=== PATIENT | male | born 1995 | race Two or more races ===

== ENCOUNTER 2018-04-09 19:09 | Emergency (ER) | payer SELFPAY ==
--- NOTE | 2018-04-09 19:38 | EDM.PDOCBH ---
ED HPI GENERAL MEDICAL PROBLEM - General Chief Complaint: Behavioral/Psych Stated Complaint: MENTAL EVAL Time Seen by Provider: 04/09/18 19:18 Source of Information: Reports: Patient History Limitations: Reports: No Limitations - History of Present Illness INITIAL COMMENTS - FREE TEXT/NARRATIVE: HISTORY AND PHYSICAL: History of present illness: Patient is a 22-year-old male who presents to the emergency room today with complaints of auditory and visual hallucinations. Patient has a long-standing history of schizophrenia and had previously taken daily oral and injectable medication while living in [place]. He states over the past month he has not taken these medications as he was continuing to have the visual and auditory hallucinations while on the medication. He states, "My brother wants me to be here to get psychiatric help". Patient reports he does have a past medical history of suicidal ideation and suicidal attempt which she has been hospitalized for. He currently denies any thoughts of self-harm or harming others. No recent suicidal ideations or attempts. Denies any drug or alcohol abuse. Review of systems: As per history of present illness and below otherwise all systems reviewed and negative. Past medical history: As per history of present illness and as reviewed below otherwise noncontributory. Surgical history: As per history of present illness and as reviewed below otherwise noncontributory. Social history: No reported history of drug or alcohol abuse. Family history: As per history of present illness and as reviewed below otherwise noncontributory. Physical exam: General: Well-developed and well-nourished 22-year-old male. Alert and oriented. Nontoxic appearing and in no acute distress. HEENT: Atraumatic, normocephalic, pupils equal and reactive bilaterally, negative for conjunctival pallor or scleral icterus, mucous membranes moist, throat clear, neck supple, nontender, trachea midline. No drooling or trismus noted. No meningeal signs Lungs: Clear to auscultation, breath sounds equal bilaterally, chest nontender. Heart: S1S2, regular rate and rhythm without overt murmur Abdomen: Soft, nondistended, nontender. Negative for masses or hepatosplenomegaly. Negative for costovertebral tenderness. Pelvis: Stable nontender. Genitourinary: Deferred. Rectal: Deferred. Skin: Intact, warm, dry. No lesions or rashes noted. Extremities: Atraumatic, negative for cords or calf pain. Neurovascular unremarkable. Neuro: Awake, alert, oriented. Cranial nerves II through XII unremarkable. Cerebellum unremarkable. Motor and sensory unremarkable throughout. Exam nonfocal. Notes: Initially the patient stated he would not want to be transferred to a mental health facility as he states that this is a chronic problem and he does not feel any improvement with medications. The brother is at the bedside and does confirm that the patient is NOT suicidal and not expressed any thoughts of harming himself or others; but would like to see him get connected with a psychiatrist for medication management. 2000: I did call [facility] in [place], they do not have any beds available. Did share this information with the patient and brother at bedside. However next option would be to go to [place]. Both patient and brother state that they will follow-up at [facility] for further evaluation and management. He declines transfer or desire to go to [place]. Patient is alert and oriented. Lab work is unremarkable. Vital signs are stable. He has no thoughts of self-harm or harming of others. Therefore will discharge him to home. The brother does live with the patient and states that they will return if anything changes. Diagnostics: CBC, CMP, TSH, UA, Drug Screen, Acetaminophen, Salicylate Therapeutics: None Prescription: None Impression: Hallucinations History of Schizophrenia Plan: 1. Please follow up with [facility] tomorrow to establish care and have your medications adjusted. 2. Return to the ED as needed as discussed Definitive disposition and diagnosis as appropriate pending reevaluation and review of above. Duration: Chronic - Related Data Allergies Allergy/AdvReac Type Severity Reaction Status Date / Time No Known Allergies Allergy Verified 04/09/18 19:20 Home Meds: Home Meds Haloperidol [Haldol] 5 mg PO BID 04/09/18 [History] diphenhydrAMINE HCl [Banophen] 25 mg PO BID 04/09/18 [History] Past Medical History Psychiatric History: Reports: Anxiety Endocrine/Metabolic History: Reports: Obesity/BMI 30+ Social & Family History - Family History Family Medical History: Noncontributory - Tobacco Use Smoking Status *Q: Current Every Day Smoker Years of Tobacco use: 3 Packs/Tins Daily: 1 - Recreational Drug Use Recreational Drug Use: Yes Drug Use in Last 12 Months: Yes Recreational Drug Type: Reports: Marijuana/Hashish ED ROS GENERAL - Review of Systems Review Of Systems: ROS reveals no pertinent complaints other than HPI. ED EXAM, BEHAVIORAL HEALTH - Physical Exam Exam: See Below (See dictation) COURSE, BEHAVIORAL HEALTH COMP - Course Vital Signs: Last Vital Signs Temp 98.6 F 04/09/18 19:09 Pulse 91 04/09/18 19:09 Resp 18 04/09/18 19:09 BP 133/77 04/09/18 19:09 Pulse Ox 98 04/09/18 19:09 Orders, Labs, Meds: Active Orders 24 hr Category Date Time Status ACETAMINOPHEN [CHEM] Stat Lab 04/09/18 19:28 Results COMPREHENSIVE METABOLIC PN,CMP [CHEM] Stat Lab 04/09/18 19:28 Results DRUG SCREEN, URINE [URCHEM] Stat Lab 04/09/18 20:10 Received ETHANOL BLOOD MEDICAL [CHEM] Stat Lab 04/09/18 19:28 Results SALICYLATE [CHEM] Stat Lab 04/09/18 19:28 Results TSH [CHEM] Stat Lab 04/09/18 19:28 Results UA W/MICROSCOPIC [URIN] Stat Lab 04/09/18 20:10 Received Laboratory Tests 04/09/18 04/09/18 Range/Units 19:28 19:28 WBC 7.87 (4.0-11.0) K/uL RBC 5.32 (4.50-5.90) M/uL Hgb 16.5 (13.0-17.0) g/dL Hct 47.7 (38.0-50.0) % MCV 89.7 (80.0-98.0) fL MCH 31.0 (27.0-32.0) pg MCHC 34.6 (31.0-37.0) g/dL RDW Std Deviation 44.8 (28.0-62.0) fl RDW Coeff of Ce 14 (11.0-15.0) % Plt Count 181 (150-400) K/uL MPV 10.50 (7.40-12.00) fL Neut % (Auto) 55.7 (48.0-80.0) % Lymph % (Auto) 34.2 (16.0-40.0) % [place] % (Auto) 9.0 (0.0-15.0) % Eos % (Auto) 0.5 (0.0-7.0) % Baso % (Auto) 0.6 (0.0-1.5) % Neut # (Auto) 4.4 (1.4-5.7) K/uL Lymph # (Auto) 2.7 H (0.6-2.4) K/uL [place] # (Auto) 0.7 (0.0-0.8) K/uL Eos # (Auto) 0.0 (0.0-0.7) K/uL Baso # (Auto) 0.1 (0.0-0.1) K/uL Nucleated RBC % 0.0 /100WBC Nucleated RBCs # 0 K/uL Sodium 138 (136-148) mmol/L Potassium 4.5 (3.5-5.1) mmol/L Chloride 101 (98-107) mmol/L Carbon Dioxide 26.5 (21.0-32.0) mmol/L BUN 11 (7.0-18.0) mg/dL Creatinine 1.0 (0.8-1.3) mg/dL Est Cr Clr Drug Dosing 137.00 mL/min Estimated GFR (MDRD) > 60.0 ml/min Glucose 111 H (74-106) mg/dL Calcium 9.4 (8.5-10.1) mg/dL Total Bilirubin 0.4 (0.2-1.0) mg/dL AST 56 H (15-37) IU/L ALT 41 (14-63) IU/L Alkaline Phosphatase 76 (46-116) U/L Total Protein 8.1 (6.4-8.2) g/dL Albumin 4.1 (3.4-5.0) g/dL Globulin 4.0 H (2.0-3.5) g/dL Albumin/Globulin Ratio 1.0 L (1.3-2.8) TSH 3rd Generation 3.05 (0.36-3.74) uIU/mL Ethyl Alcohol <3 mg/dL Departure - Departure Time of Disposition: 20:18 Disposition: Home, Self-Care 01 Clinical Impression: Hallucinations - Discharge Information Forms: ED Department Discharge Additional Instructions: The following information is given to patients seen in the emergency department who are being discharged to home. This information is to outline your options for follow-up care. We provide all patients seen in our emergency department with a follow-up referral. The need for follow-up, as well as the timing and circumstances, are variable depending upon the specifics of your emergency department visit. If you don't have a primary care physician on staff, we will provide you with a referral. We always advise you to contact your personal physician following an emergency department visit to inform them of the circumstance of the visit and for follow-up with them and/or the need for any referrals to a consulting specialist. The emergency department will also refer you to a specialist when appropriate. This referral assures that you have the opportunity for follow-up care with a specialist. All of these measure are taken in an effort to provide you with optimal care, which includes your follow-up. Under all circumstances we always encourage you to contact your private physician who remains a resource for coordinating your care. When calling for follow-up care, please make the office aware that this follow-up is from your recent emergency room visit. If for any reason you are refused follow-up, please contact the [facility] at and asked to speak to the emergency department charge nurse. [facility] [address] [place] [id number] [id number] Crisis Line: 1. Please follow up with [facility] tomorrow to establish care and have your medications adjusted. 2. Return to the ED as needed as discussed - My Orders Last 24 Hours: My Active Orders 04/09/18 19:28 ACETAMINOPHEN [CHEM] Stat COMPREHENSIVE METABOLIC PN,CMP [CHEM] Stat ETHANOL BLOOD MEDICAL [CHEM] Stat SALICYLATE [CHEM] Stat TSH [CHEM] Stat 04/09/18 20:10 DRUG SCREEN, URINE [URCHEM] Stat UA W/MICROSCOPIC [URIN] Stat - Assessment/Plan Last 24 Hours: My Active Orders 04/09/18 19:28 ACETAMINOPHEN [CHEM] Stat COMPREHENSIVE METABOLIC PN,CMP [CHEM] Stat ETHANOL BLOOD MEDICAL [CHEM] Stat SALICYLATE [CHEM] Stat TSH [CHEM] Stat 04/09/18 20:10 DRUG SCREEN, URINE [URCHEM] Stat UA W/MICROSCOPIC [URIN] Stat
[2018-04-09 20:03] LABS: CHLORIDE,CL 101 mmol/L (98-107); SODIUM,NA 138 mmol/L (136-148)
== END 2018-04-09 20:45 | disposition home or self-care (01) ==
LOC: MW.ED 19:09
DX: R44.1 Visual hallucinations (principal); R44.0 Auditory hallucinations; F20.9 Schizophrenia, unspecified; F17.210 Nicotine dependence, cigarettes, uncomplicated; Z79.899 Other long term (current) drug therapy
CPT/HCPCS: 36415; 80053; 80305; 81001; 84443; 85025; 99285; G0480; 99283